=== PATIENT | female | born 1945 | race Caucasian/White ===

== ENCOUNTER 2023-03-08 18:43 | Emergency (ER) | payer OTHER ==
[2023-03-08 19:08] VITALS: RESP 16; BMI 29.2
[2023-03-08] MEDS ORDERED: SODIUM CHLORIDE 1,000 ML IV ONE (19:22)
[2023-03-08 19:48] LABS: HEMATOCRIT 38.6 % (32.4-45.2); HEMOGLOBIN 13.1 G/dL (10.7-15.3); MCH 31.4 pg (25.7-33.7); MCHC 33.9 g/dl (32.0-36.0); MEAN CELL VOLUME 92.6 fl (80-96); PLATELET COUNT 225.5 10^3/uL (134-434); RBC 4.17 10^6/uL (3.60-5.2); RDW 13.2 % (11.6-15.6); WHITE BLOOD COUNT 6.6 10^3/uL (4.0-10.8)
[2023-03-08 20:06] LABS: ALBUMIN 3.9 g/dl (3.4-5.0); BILIRUBIN,TOTAL 0.4 mg/dl (0.2-1); CALCIUM 8.9 mg/dl (8.5-10.1); CREATININE 0.7 mg/dl (0.6-1.3); POTASSIUM 3.9 mmol/L (3.5-5.1); SGOT/AST 19.301 U/L (15-37); SGPT/ALT 16.487 U/L (7-52); TOT PROT 6.3 g/dl (6.4-8.2)
[2023-03-08 20:49] VITALS: BP 114/80; PULSE 65; TEMP 97.8
== END 2023-03-08 20:56 | disposition home or self-care (01) ==
LOC: FER 18:43
PROC: 3E0337Z Introduction of Electrolytic and Water Balance Substance into Peripheral Vein, Percutaneous Approach (ICD-10-PCS; principal; 2023-03-08)
DX: R42 Dizziness and giddiness (principal); R55 Syncope and collapse; F12.90 Cannabis use, unspecified, uncomplicated
CPT/HCPCS: 36415; 80053; 82550; 84484; 85027; 93005; 99284-25